=== PATIENT | male | born 1955 | race Caucasian/White ===

== ENCOUNTER → 2018-02-22 | Outpatient (CLI) | payer BC ==
--- NOTE | 2018-02-22 16:22 | RADIOLOGY REPORT (SQ) ---
EXAM DESCRIPTION: CHEST 2 VIEWS COMPLETED DATE/TIME: 02/22/2018 4:15 pm REASON FOR STUDY: MALIGNANT MELANOMA OF OTHER PART OF TRUNK COMPARISON: None. EXAM PARAMETERS: NUMBER OF VIEWS: two views TECHNIQUE: Digital Frontal and Lateral radiographic views of the chest acquired. RADIATION DOSE: NA LIMITATIONS: none FINDINGS: LUNGS AND PLEURA: No opacities, masses or pneumothorax. No pleural effusion. MEDIASTINUM AND HILAR STRUCTURES: No masses or contour abnormalities. HEART AND VASCULAR STRUCTURES: Heart normal size. No evidence for failure. BONES: No acute findings. HARDWARE: None in the chest. OTHER: No other significant finding. IMPRESSION: NO ACUTE RADIOGRAPHIC FINDING IN THE CHEST. TECHNICAL DOCUMENTATION: JOB ID: [id number] [employer]- All Rights Reserved Reading location - IP/workstation name: [email or web address]
== END ==
LOC: RAD 16:01
PROVIDERS: ATTEND Surgery
DX: C43.59 Malignant melanoma of other part of trunk (principal)
CPT/HCPCS: 71046

== ENCOUNTER 2018-03-02 10:03 | Observation (INO) | payer BC ==
[2018-02-28 11:48] LABS: HEMATOCRIT 46.2 % (37.9-51.0); HEMOGLOBIN 16.1 g/dL (13.5-17.0); MEAN CORPUSCULAR HEMOGLOBIN 29.8 pg (27.0-33.4); MEAN CORPUSCULAR HGB CONC 34.9 g/dL (32.0-36.0); MEAN CORPUSCULAR VOLUME 85 fl (80-97); PLATELET COUNT 237 10^3/uL (150-450); RED BLOOD COUNT 5.41 10^6/uL (4.35-5.55); RED CELL DISTRIBUTION WIDTH 13.8 % (11.5-14.0); WHITE BLOOD COUNT 8.5 10^3/uL (4.0-10.5)
[2018-02-28 12:07] LABS: ANION GAP 12 (5-19); BLOOD UREA NITROGEN 16 mg/dL (7-20); CALCIUM 9.7 mg/dL (8.4-10.2); CARBON DIOXIDE 23 mmol/L (22-30); CHLORIDE 106 mmol/L (98-107); GLUCOSE 85 mg/dL (75-110); POTASSIUM 4.4 mmol/L (3.6-5.0); SODIUM 141.3 mmol/L (137-145)
--- NOTE | 2018-02-28 16:01 | EKG REPORT ---
SEVERITY:- NORMAL ECG - SINUS RHYTHM : Confirmed by: Jose Madrid 28-Feb-2018 16:01:12
[~2018-03-02 10:03] MED LIST: CEFAZOLIN 1 GM/D5W RTU 1 GM/50 ML RTUPB IV ONE; CEFAZOLIN 1 GM/D5W RTU 1 GM/50 ML RTUPB IV PRN; LACTATED RINGERS 1000 ML IV PRN; LIDOCAINE 0.5% INJ-PF (5 MG/ML) 50 ML SDV SUBCUT PRN; LIDOCAINE 4% TRANSPARENT DRESSING 5 GM KIT ONE
[2018-03-02] MEDS ORDERED: METHYLENE BLUE 50 MG/10 ML AMPULE ONE (10:56)
[2018-03-02] MEDS ORDERED: LIDOCAINE 1%/EPINEPHRINE INJ 20 ML VIAL ONE (10:56)
[2018-03-02] MEDS ORDERED: MICROFIBRILLAR COLLAGEN 1 GM PACK ONE (10:56)
--- NOTE | 2018-03-02 15:02 | RADIOLOGY REPORT (SQ) ---
EXAM DESCRIPTION: NM LYMPHATICS/LYMPH GLANDS COMPLETED DATE/TIME: 03/02/2018 12:34 pm REASON FOR STUDY: MELANOMA POSTERIOR TRUNK C43.59 MALIGNANT MELANOMA OF OTHER PART OF TRUNK COMPARISON: None. RADIONUCLIDE AND DOSE: 603 microcuries TC-99m tilmanocept - [employer]. The route of agent administration: Subcutaneous in the skin. TECHNIQUE: The skin of the left lower back in the area of prior melanoma biopsy was prepped in steri le fashion. The radiopharmaceutical was administered in equally divided doses in the skin around the melanoma biopsy site. LIMITATIONS: None. FINDINGS: Images demonstrate activity at the injection site. There is migration of activity towards the left axilla IMPRESSION: ADMINISTRATION OF RADIOPHARMACEUTICAL FOR SENTINEL LYMPH NODE EVALUATION. TECHNICAL DOCUMENTATION: JOB ID: [id number] [employer]- All Rights Reserved Reading location - IP/workstation name: [email or web address]
[2018-03-02] MEDS ORDERED: ONDANSETRON HCL INJ/PF 4 MG/2 ML SDV ONE ×2 (15:33→18:48)
[2018-03-02] MEDS ORDERED: HYDROMORPHONE HCL INJ/PF 2 MG/ML AMPULE ONE (15:33)
[2018-03-02] MEDS ORDERED: EPHEDRINE SULFATE INJ 50 MG/1 ML AMPULE ONE (15:33)
[2018-03-02] MEDS ORDERED: PROPOFOL INJ 200 MG/20 ML VIAL IV ONE (15:33)
[2018-03-02] MEDS ORDERED: MIDAZOLAM 2 MG/2 ML INJ ONE (15:33)
[2018-03-02] MEDS ORDERED: FENTANYL CITRATE INJ/PF 100 MCG/2 ML AMPUL IV PRN ×3 (16:22)
[2018-03-02] MEDS ORDERED: MEPERIDINE HCL/PF INJ 25 MG/1 ML DISP.SYRIN IV PRN (16:22)
[2018-03-02] MEDS ORDERED: ONDANSETRON HCL INJ/PF 4 MG/2 ML SDV IV PRN ×2 (16:22→18:29)
[2018-03-02] MEDS ORDERED: DIPHENHYDRAMINE HCL 50 MG/ML VIAL IV PRN (16:22)
[2018-03-02] MEDS ORDERED: BUPIVACAINE INJ/PF LIPOSOME/PF 266 MG/20 ML SDV ONE (16:32)
[2018-03-02] MEDS ORDERED: KETOROLAC TROMETHAMINE 10 MG TABLET PO PRN (18:29)
[2018-03-02] MEDS ORDERED: OXYCODONE-ACETAMINOPHEN 5-325 MG TABLET PO PRN (18:29)
--- NOTE | 2018-03-02 18:41 | Operative Report ---
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 Wide excision of multifocal left lower back melanoma and melanoma in situ with closure over drain. 2. Dual mapping sentinel lymph node biopsy left axillary node x1 SURGEON: ALEJANDRO CHAUHAN ANESTHESIA: GA TISSUE REMOVED OR ALTERED: Wide excision left lower back melanoma site: Left axillary lymph node and associated axillary fat COMPLICATIONS: None ESTIMATED BLOOD LOSS: 25 cc INTRAOPERATIVE FINDINGS: See below PROCEDURE: The patient was seen in the preop holding area after undergoing lymphoscintigraphy of the left back melanoma site. There was an area of increased activity possibly 2 lymph nodes in the left axilla as confirmed by Dr. Brown, radiologist. The patient was taken from the preop holding area to the main operating room where general anesthesia was induced. He was then placed in the right lateral decubitus position, left arm at his side. The left lower back melanoma site was prepped and draped in sterile fashion. Of note the patient had multifocal melanoma in situ and invasive melanoma biopsied by shave excision. The extent, and depth of the melanoma complex remained unknown. Surgical plan and surgical timeout were conducted. Prior to prepping and draping the patient, we did complete the methylene blue injection of approximately 3 cc of dilute methylene blue, in the intradermal space at 8 locations using approximately 3 cc with a 25-gauge needle. The tissue was massaged for 5 minutes after injection. I inspected the cluster of multifocal disease which was contained within a region of about 3-4 cm however the exact location of the border was somewhat vague. Therefore I estimated from the perimeter approximately 1/2-2 cm lateral and medial margin, and then marked approximately 6 cm cephalad and 6 cm caudad to the target lesion I then marked an ellipse on the skin oriented vertically with a slight bias. The skin was Jennifer times with quarter percent Marcaine. A wide ellipse was then with a #10 blade in elliptical fashion with final dimensions approximately 17 cm in the vertical direction and approximately 8 cm in the transverse direction. The wide excision was taken down to encompass the deep subcutaneous tissue and the fascia of the back. This was performed using electrocautery. The specimen was elevated off of the back, and marked with a long suture in the lateral position short suture in the superior position and sent to pathology for permanent analysis We now elevated the medial and lateral skin flaps with electrocautery, placed a drain in the patient's left lateral skin flap secured to the skin with 2-0 Prolene suture and this was a large 15 Iranian Freddy. The drain was tucked into the sub-cutaneous pocket and now the wound was closed in layers with approximately 10 interrupted deep subcutaneous 2-0 Vicryl suture and then the immediate subcutaneous tissue and dermis closed with multiple running 2-0 Vicryl sutures. Attention was mild to moderate especially at the midpoint of the closure. However the flaps were viable and we was the skin with multiple mathew. Drain hooked to bulb suction, and sterile dressings applied with honeycomb dressings. The patient was now rotated into the supine position in the left arm supported and abducted. The left axilla was clipped of hair prepped and draped in sterile fashion with a separate prep A point of maximum radionuclear activity was detected in the mid to lower left axilla. Skin was Jennifer times with quarter percent Marcaine. Of note the intensity of radioactivity, but not intense we made a small 3 cm incision over the low axilla and proceeded to perform a sentinel lymph node harvest of 1 non- blue by hot lymph node. This was an extremely challenging harvest due to poor signal strength and sense of blue uptake in the lymph node. The lymph node was sent with an ex vivo count of 2749. Background counts were negligible. Several small pieces of associated axillary fat were sent with the final specimen as this harvested during the node biopsy. Hemostasis was achieved and closed with 3-0 Vicryl and mathew. Sterile dressing was applied Patient tolerated procedure well, extubated, taken recovery in stable condition.
[2018-03-02] MEDS ORDERED: PROMETHAZINE HCL INJ 25 MG/1 ML VIAL IV PRN (21:57)
[2018-03-02] MEDS ORDERED: KETOROLAC TROMETHAMINE INJ/PF 30 MG/1 ML SDV IV PRN (21:57)
[2018-03-03] MEDS: ACETAMINOPHEN INJ/PF 1000 MG/100 ML SDV IV SCH ×2 (00:27→06:03)
[2018-03-03 08:47] VITALS: BP 141/71
[2018-03-03] MEDS ORDERED: DOCUSATE SODIUM 100 MG CAPSULE PO SCH (10:00)
--- NOTE | 2018-03-03 10:33 | DISCHARGE SUMMARY E ---
Discharge Summary NAME: PRISCILLA CAMPBELL : 1955 AGE: 63Y ADMITTED: 03/02/2018 DISCHARGED: 03/03/2018 SUMMARY OF HOSPITALIZATION: The patient is a 63-year-old white male who was admitted through ambulatory surgery for malignant melanoma management. The patient underwent wide excision of left lower back malignant melanoma, in conjunction with sentinel lymph node biopsy left axilla. He tolerated the procedure well. Postoperatively, he was very groggy so he was kept overnight. Thereafter, he did well, was taught drain care, and started on a diet. By the mid morning of the first postoperative day, he was felt to receive maximum benefit from the hospitalization and was discharged home. FINAL DIAGNOSIS: Malignant melanoma left lower back multifocal status post wide excision of melanoma site and sentinel lymph node biopsy left axilla. DISPOSITION: The patient will be discharged home to the care of his family. Follow up with Dr. Will in 1 week. Take Percocet p.r.n. pain; stool softener over the counter recommended; also instructed patient on decreased range of motion left arm. DICTATING PHYSICIAN: ALEJANDRO WILL M.D. [id number] PHY#: [id number] ID: [id number] JOB#: [id number] ACCT: [id number] cc:ALEJANDRO WILL M.D. >
== END 2018-03-03 09:53 | disposition home or self-care (01) ==
LOC: OROUT 10:03 → 4S 13:30 → OROUT 13:30 → 4S 20:04 → OROUT 20:04 → 4S 03-03 09:53 → OROUT 03-03 09:53
PROVIDERS: ADMIT Surgery; ATTEND Surgery
PROC: 0JB70ZX Excision of Back Subcutaneous Tissue and Fascia, Open Approach, Diagnostic (ICD-10-PCS; 2018-03-02)
PROC: 07B60ZX Excision of Left Axillary Lymphatic, Open Approach, Diagnostic (ICD-10-PCS; 2018-03-02)
PROC: 3E02340 Introduction of Influenza Vaccine into Muscle, Percutaneous Approach (ICD-10-PCS; principal; 2018-03-03)
DX: D03.59 Melanoma in situ of other part of trunk (principal); Z23 Encounter for immunization; Z85.828 Personal history of other malignant neoplasm of skin; Z98.890 Other specified postprocedural states
CPT/HCPCS: 93005; 36415; 85027; 80048; 88342 ×2; 88341 ×2; 88307 ×2; 78195; 90686; 94799; 93010; 94762 ×2; 11606; 12032; 38500; G0378 ×2; G0379; G0008; A9520; J2250; J0690; J3490 ×4; J1885; J1170; J2550; J2405; J2704; J0131; C9290; Q9968; 300; 90471